=== PATIENT | male | born 1945 | race Caucasian/White ===

== ENCOUNTER 2018-02-05 11:14 | Outpatient (CLI) | payer MEDICARE, OTHER ==
[~2018-02-05] VITALS: Ht 193 cm; Wt 118.2 kg
--- NOTE | ~2018-02-05 | OP ---
PATIENT NAME: DIANA FITZGERALD JR MEDICAL RECORD: [id number] :49 LOCATION:D.CAT ADMISSION DATE: SURGEON: LEONIDES LAWSON MD DATE OF OPERATION: 02/05/2018 PROCEDURE: Left heart catheterization, selective coronary angiography, right femoral artery approach. CATHETERS: A 5-Jordanian sheath, 5/4 left and right Kear[place], 5/4 pig. The procedure was well tolerated. The patient returned to the iraheta. Sheath was removed. ExoSeal device was placed. FINDINGS: Left ventriculography in 30 degrees LAMAR view, normal wall motion, normal systolic function. CORONARY ANATOMY: LEFT MAIN: Left main is free of disease. LAD: Has a tight stenosis in mid portion around the takeoff of the septal remedy developer of 90%, diagonal D1 has an 80% proximal to almost ostial stenosis. CIRCUMFLEX: Free of disease. RIGHT CORONARY ARTERY: Dominant artery, free of disease. IMPRESSION AND PLAN: Intervention of LAD and diagonal momentarily. DESCRIPTION OF PROCEDURE: A 5-Jordanian sheath was exchanged for 6-Jordanian sheath. XB LAD guiding catheter provided excellent guide catheter support. Initial lesion in the LAD was addressed after we placed a Whisper wire through the occlusion down distal portion of vessel, 3.0 x 15 mm Resolute drug-eluting stent was inflated up to 14 atmospheres. Next, the indwelling Whisper wire was used and we were able to cross the ostial proximal diagonal lesion of 80%. Next, a 2.5 x 12 mm Ennice drug-eluting stent was placed in this artery and inflated up to 14 atmospheres again for 45 seconds. Final angiography shows excellent resolution of 90% LAD stenosis and 80% diagonal stenosis. No significant residual. ARTUR flow was 3 throughout the procedure. Heparin and Integrilin were used during the case. Sheath was closed with ExoSeal device. Plavix was loaded in the lab. TRANSINT:[id number] Voice Confirmation ID: [id number] DOCUMENT ID: [id number] LEONIDES LAWSON MD at 0816 CC: [id number] DICTATION DATE: 02/05/18 1432 [employer] E[employer]MENT: 02/05/18 1503 DEP CLI 02/05/18 [place] [address]
--- NOTE | ~2018-02-05 | HEMODYNAMI ---
PATIENT:DIANA FITZGERALD JR MEDICAL RECORD: [id number] : 49 LOCATION:DManojCAT ADMISSION DATE: 02/05/18 Generatedon:02/05/201814:26 Patient name: DIANA FITZGERALD Patient #: [id number] SSN: D OB: 1945 Date of study: 02/05/2018 Page: Of Hemodynamic Procedure Report Patient Data Patient Demographics Procedure consent was obtained First Name: DIANA Gender: Male Last Name: AMILCAR Suffix: [facility] Initial: A : 1945 Patient #: [id number] Age: 72 year(s) Race: Unknown Additional ID: [id number] Contact details [address]: [address] [place] [address] State: [place] City: [place] Zip code: [address] Admission Admission Data Admission Date: 02/05/2018 Admission Time: 11:14 Procedure Procedure Types Cath Procedure Diagnostic Procedure LHC LHC w/Coronaries PCI Procedure Coronary Stent Coronary Stent Initial Coronary Stent Additional Procedure Description Procedure Date Procedure Date: 02/05/2018 Procedure Start Time: 13:49 Procedure End Time: 14:22 Procedure Staff Name Function Kirk Tineo MD Performing Physician Ramón Conteh RT Monitor Nona Arizmendi RN Nurse Cruzito Telles RT Scrub Procedure Data Cath Procedure Fluoroscopy Diagnostic fluoroscopy Total fluoroscopy Time: 6 time: 6 min min Diagnostic fluoroscopy Total fluoroscopy dose: 922 dose: 922 mGy mGy Contrast Material Contrast Material Type Amount (ml) Isovue 300 163 Entry Location Entry Primary Successful Side Size Upsize Upsize Entry Closure Succes sful Closure Location (Fr) 1 (Fr) 2 (Fr) Remarks Device Remarks Femoral Right 5 Fr 6 Fr Exoseal artery Short Estimated blood loss: 10 ml Diagnostic catheters Device Type Used For End Catheter Placement MULTIPACK JL 4.0 5Fr Procedure catheter MULTIPACK 3DRC 5Fr Procedure catheter MULTIPACK Pigtail 5 Fr Procedure catheter Procedure Complications No complications Procedure Medications Medication Administration Route Dosage Oxygen NC 2 l/min Lidocaine 2% added to field 20 0.9% NaCl I.V. 100 ml/hr Heparin Flush Bag added to field 2 bags (1000units/500ml NS) Heparin Bolus I.V. 5000 units Versed I.V. 1 mg Fentanyl I.V. 50 mcg Versed I.V. 1 mg Fentanyl I.V. 50 mcg Versed I.V. 1 mg Fentanyl I.V. 50 mcg Versed I.V. 1 mg Plavix P.O. 600 mg Hemodynamics Rest Heart Rate: 53 (bpm) Pressure Samples Time Site Value (mmHg) Purpose Heart Use Rate(bpm) 13:52 AO 96/64(80) Snapshot 54 13:57 LV 102/9,11 Snapshot 56 Gradients Valve Time Site Site Mean SEP/DFP Peak To Heart Use 1 2 (mmHg) (sec/min) Peak Rate (mmHg) (bpm) Aortic 13:57 LV AO 57 Snapshots Pre Cath Intra NCS Post Cath Vital Signs Time Heart Resp SPO2 etCO2 NIBP (mmHg) Rhythm Pain Sedation Rate (ipm) (%) (mmHg) Status Level (bpm) 13:37:17 53 25 96 0 136/80(108) NSR 0 (11) 10(A) , No pain 13:41:45 52 20 97 26.9 141/78(116) NSR 0 (11) 10(A) , No pain 13:46:05 51 16 96 36.7 122/72(94) NSR 0 (11) 10(A) , No pain 13:50:23 51 21 95 35.9 119/67(88) NSR 0 (11) 9(A) , No pain 13:54:45 56 18 92 35.2 121/61(87) NSR 0 (11) 9(A) , No pain 13:59:04 56 17 93 36.7 114/65(94) NSR 0 (11) 9(A) , No pain 14:03:22 58 17 94 37.4 108/59(82) NSR 0 (11) 9(A) , No pain 14:07:40 58 16 94 35.9 109/63(88) NSR 0 (11) 9(A) , No pain 14:11:58 56 17 95 36 122/63(95) NSR 0 (11) 9(A) , No pain 14:16:18 53 20 96 32.2 122/68(92) NSR 0 (11) 9(A) , No pain 14:20:38 56 20 96 27.7 127/76(100) NSR 0 (11) 10(A) , No pain Medications Time Medication Route Dose Verified Delivered Reason Notes E ffectiveness by by 13:40:04 Lidocaine 2% added 20ml Nona Nona for local to vial Ugo Ugo anesthetic field RN RN 13:40:24 0.9% NaCl I.V. 100 Nona Nona used for ml/hr Ugo Ugo golf player assistant RN 13:40:35 Heparin Flush added 2 Nona Nona used for Bag to bags Ugo Ugo procedure (1000units/500ml field RN RN NS) 13:40:52 Oxygen NC 2 Nona Nona used for l/min Ugo Ugo golf player assistant RN 13:44:09 Fentanyl I.V. 50 Nona Nona for mcg Ugo Ugo sedation RN RN 13:44:51 Versed I.V. 1 mg Nona Nona for Ugo Ugo sedation RN RN 13:48:25 Versed I.V. 1 mg Nona Nona for Ugo Ugo sedation RN RN 13:48:38 Fentanyl I.V. 50 Nona Nona for mcg Ugo Ugo sedation RN RN 13:52:05 Fentanyl I.V. 50 Nona Nona for mcg Ugo Ugo sedation RN RN 13:53:50 Versed I.V. 1 mg Nona Nona for Ugo Ugo sedation RN RN 13:58:59 Heparin Bolus I.V. 5000 Nona Nona Per verified units Ugo Ugo physician with RN RN [place] 14:00:18 Versed I.V. 1 mg Nona Nona for Ugo Ugo sedation RN RN 14:20:44 Plavix P.O. 600 Nona Nona Per mg Ugo Ugo physician RN media center specialist Log Time Note 13:10:54 Ramón Conteh RT(R) sent for patient. Start room use. 13:31:02 Time tracking: Regular hours (M-F 7:00 - 5:00) 13:31:05 Plan of Care:Hemodynamics will remain stable., Cardiac rhythm will remain stable., Comfort level will be maintained., Respiratory function will remain adequate., Patient/ family verbilizes understanding of procedure., Procedure tolerated without complication., Recovers from procedure without complications.. 13:31:11 Patient received from Pre/Post Procedure Room to CCL 3 Alert and oriented. Tansferred to table in Supine position. 13:31:12 Warm blankets applied, and shai hugger turned on for patient comfort. 13:31:12 Correct patient and procedure confirmed by team. 13:31:13 Signed procedure consent form obtained from patient. 13:31:13 ECG and BP/O2 sat monitors applied to patient. 13:36:02 Vital chart was started 13:39:15 Baseline sample Acquired. 13:39:19 Rhythm: sinus bradycardia 13:39:20 Full Disclosure recording started 13:39:36 H&P Date Dictated: 01/25/2018 Within 30 days and on chart., H&P Addendum completed by physician on day of procedure. (MUST COMPLETE FOR ALL OUTPATIENTS). 13:39:37 Pre-procedure instructions explained to patient. 13:39:37 Pre-op teaching completed and patient verbalized understanding. 13:39:39 Family in patients room. 13:39:41 Patient NPO since Midnight. 13:39:42 Is the patient allergic to Iodine/contrast media? No. 13:39:46 Is patient on blood thinner?No 13:39:57 Patient diabetic? No. 13:40:01 Previous problem with sedation/anesthesia? No ? 13:40:02 Snore? Yes 13:40:03 Sleep apnea? Yes 13:40:04 Lidocaine 2% 20ml vial added to field was administered by Nona Arizmendi RN; for local anesthetic; 13:40:04 Deviated septum? No 13:40:05 Opens mouth fully? Yes 13:40:05 Sticks out tongue? Yes 13:40:07 Airway obstruction? No ? 13:40:24 0.9% NaCl 100 ml/hr I.V. was administered by Nona Arizmendi RN; used for procedure; 13:40:35 Heparin Flush Bag (1000units/500ml NS) 2 bags added to field was administered by Nona Arizmendi RN; used for procedure; 13:40:52 Oxygen 2 l/min NC was administered by Nona Ugo RN; used for procedure; 13:41:17 Dentures? No ? 13:41:19 Pre procedure: right dorsailis pedis pulse 1+ Palpable, but thready & weak; easily obliterated 13:41:21 FAILED THONY'S 13:41:21 Modified Thony's test Ulnar < 7 seconds 13:41:25 Patient pain scale 0/10 ?. 13:43:53 IV patent on arrival in left forearm with 0.9% NaCl at O. 13:43:57 Lab results completed and on chart. 13:44:09 Fentanyl 50 mcg I.V. was administered by Nona Arizmendi RN; for sedation; 13:44:11 Right groin area was prepped with chlora-prep and draped in sterile fashion 13:44:12 Alarms reviewed by R. N. 13:44:12 Sharps counted by scrub and verified by R.N. 13:44:36 --------ALL STOP TIME OUT------ 13:44:36 Final Timeout: patient, procedure, and site verified with staff and physician. All members of the team are in agreement. 13:44:38 Right groin site verified by team. 13:44:41 Physical assessment completed. ASA score P 2 - A patient with mild systemic disease as per Kirk Tineo MD. 13:44:44 Sedation plan: IV Moderate Sedation Medication:Versed, Fentanyl 13:44:51 Versed 1 mg I.V. was administered by Nona Arizmendi RN; for sedation; 13:47:06 Zero performed for pressure channel P1 13:48:25 Versed 1 mg I.V. was administered by Nona Arizmendi RN; for sedation; 13:48:38 Fentanyl 50 mcg I.V. was administered by Nona Arizmendi RN; for sedation; 13:49:04 Use device set Femoral Dx 13:49:05 Tegaderm 4 x 4 (1626W) opened to sterile field. 13:49:06 PERCUTANEOUS ENTRY 19GA needle opened to sterile field. 13:49:08 ACIST Hand Control (24892) opened to sterile field. 13:49:08 ACIST Manifold (23104) opened to sterile field. 13:49:10 ACIST Syringe (20732) opened to sterile field. 13:49:10 Bag Decanter (2002S) opened to sterile field. 13:49:10 Medline Cath Pack ([id number]) opened to sterile field. 13:49:11 DIAGNOSTIC WIRE .035 260cm J wire (779561) opened to sterile field. 13:49:12 DIAGNOSTIC Multipack 5Fr catheter set (FD8145) opened to sterile field. 13:49:15 SHEATH Prelude 5Fr 0.035 (ZQD-7G-11-035) opened to sterile field. 13:49:19 Procedure started. 13:49:23 Local anesthetic to right femoral artery with Lidocaine 2% by Kirk Tineo MD.INITIAL ACCESS ONLY 13:50:22 A 5 Fr sheath was inserted into the Right Femoral artery 13:50:44 A MULTIPACK JL 4.0 5Fr catheter was advanced over the wire and used for Procedure. 13:51:52 LCA angiography performed. 13:52:05 Fentanyl 50 mcg I.V. was administered by Nona Arizmendi RN; for sedation; 13:53:05 Catheter removed. 13:53:50 Versed 1 mg I.V. was administered by Nona Arizmendi RN; for sedation; 13:54:00 A MULTIPACK 3DRC 5Fr catheter was advanced over the wire and used for Procedure. 13:55:03 RCA angiography performed. 13:55:49 Catheter removed. 13:55:58 A MULTIPACK Pigtail 5 Fr catheter was advanced over the wire and used for Procedure. 13:56:13 Use device set KEYSTONE PCI 13:56:22 INFLATOR Merit BasixCompak (EC3550) opened to sterile field. 13:56:23 WHISPER 300cm guide wire ([id number]) opened to sterile field. 13:56:25 SHEATH Prelude 6Fr 0.035 (OWI-9O-47-035) opened to sterile field. 13:57:34 LV angiography performed. 13:57:36 LV gram done using LAMAR 13:57:40 EF : 55 % 13:57:42 LV hemodynamics recorded. 13:57:45 Injector settings: Ml/sec: 10, Volume: 20, 13:57:47 Catheter removed. 13:57:54 GUIDE 6FR XBLAD 4.0 catheter ([id number]) opened to sterile field. 13:58:02 Sheath upsized to a 6 Fr Short. 13:58:59 Heparin Bolus 5000 units I.V. was administered by Nona Arizmendi RN; Per physician; verified with dr. tineo 13:59:37 6 Fr XBLAD 4 guide catheter was inserted over the wire 14:00:18 Versed 1 mg I.V. was administered by Nona Arizmendi RN; for sedation; 14:01:08 Whisper wire advanced. 14:03:02 Wire advanced across lesion. 14:09:26 Place stent Inflation Number: 1 A KAMAR RX 3.0 x 15 stent ([id number]) was prepped and advanced across the Mid LAD. The stent was deployed at 14 ILANA for 0:30 (min:sec). 14:10:50 Wire redirected to DIAG. 14:11:30 Inflation number: 1 The stent balloon was then re-inflated across the 1st Diag to 12 ILANA for 0:30 (min:sec). 14:12:25 Stent catheter was removed intact over wire. 14:15:20 Place stent Inflation Number: 2 A KAMAR RX 2.5 x 12 stent ([id number]) was prepped and advanced across the 1st Diag. The stent was deployed at 14 ILANA for 0:30 (min:sec). 14:16:18 Stent catheter was removed intact over wire. 14:16:19 Wire removed. 14:16:20 Guide catheter removed. 14:17:21 EXOSEAL 6Fr (EX600) opened to sterile field. 14:17:45 Sheath removed intact; hemostasis achieved with Exoseal to the Right Femoral artery. 14:17:46 Procedure ended.(Physican Out) 14:19:28 Fluoroscopy time 06.00 minutes. 14:19:32 Fluoroscopy dose: 922 mGy 14:19:32 Flurop Dose total: 922 14:19:36 Contrast amount:Isovue 300 163ml. 14:19:42 Sharps counted by scrub and verified by R.N. 14:19:44 Insertion/operative site no bleeding no hematoma. 14:19:46 Post-op/insertion site Right Femoral artery dressed using a 4 x 4 and Tegaderm. 14:19:47 Post Procedure Pulses reassessed and unchanged 14:19:49 Post-procedure physical assessment completed. ASA score P 2 - A patient with mild systemic disease as per Kirk Tineo MD. 14:19:55 Post procedure rhythm: unchanged. 14:20:00 Estimated blood loss: 10 ml 14:20:03 Post procedure instruction explained to patient.Patient verbalizes understanding. 14:20:04 Patient needs reinforcement of post procedure teaching. 14:20:14 Procedure type changed to Cath procedure, Diagnostic procedure, LHC, LHC w/Coronaries, PCI procedure, Coronary Stent, Coronary Stent Initial, Coronary Stent Additional 14:20:15 Procedure and supply charges have been captured, reviewed, submitted and are correct. 14:20:44 Plavix 600 mg P.O. was administered by Nona Arizmendi RN; Per physician; 14:22:20 Procedure Complication : No complications 14:22:23 Vital chart was stopped 14:22:24 See physician's report for complete and final results. 14:22:25 Report given to Pre/Post Procedure Room. 14:22:27 Patient transfered to Pre/Post Procedure Room with Stretcher. 14:22:29 Procedure ended. 14:22:29 Full Disclosure recording stopped 14:24:08 End room use (Document Last) Intervention Summary Intervention Notes Time ActionType Lesion and Equipment Used Action# Pressure Duration Attributes 14:09:26 Place stent Mid LAD KAMAR RX 3.0 x 1 14 00:30 15 stent ([id number]) 14:11:30 Reinflate 1st Diag KAMAR RX 3.0 x 1 12 00:30 stent 15 stent balloon ([id number]) 14:15:20 Place stent 1st Diag KAMAR RX 2.5 x 2 14 00:30 12 stent ([id number]) Device Usage Item Name Manufacture Quantity Catalog Number Hospital Part Current Minimal Lot# / Charge Number Stock Stock Serial# Code Tegaderm 4 x 4 3M 1 1626W [id number] [id number] [id number] 5 (1626W) PERCUTANEOUS Cook Medical 1 [id number] 833911 348316 5 ENTRY 19GA needle ACIST Hand Acist 1 00615 257652 486926 678002 5 Control (43013) [employer] Inc ACIST Manifold Acist 1 54561 086099 661717 776885 5 (63548) [employer] Inc ACIST Syringe Acist 1 36793 961372 547877 736203 20 (36689) Medical Systems Inc Bag Decanter Microtek 1 777743 58349 259507 5 () Medical Inc. Medline Cath Cardinal 1 [id number] 078919 01538 494828 5 Pack Health ([id number]) DIAGNOSTIC WIRE St Trell 1 924694 309000 123605 514798 30 .035 260cm J wire (358942) DIAGNOSTIC Cardinal 1 SX2709 929887 08216 584859 30 Multipack 5Fr Health catheter set (BL4683) SHEATH Prelude Merit 1 PSG-7O-49-035 428811 904622 217567 5 5Fr 0.035 Medical ([facility]-6Z-29-035) MULTIPACK JL Cardinal 1 959153 5 4.0 5Fr Health catheter MULTIPACK 3DRC Cardinal 1 908085 5 5Fr catheter Health MULTIPACK Cardinal 1 402571 5 Pigtail 5 Fr Health catheter INFLATOR Merit Merit 1 WN8551 200154 455323 593851 15 [employer] Medical (GU2513) WHISPER 300cm Alvarado 1 [id number] 275943 815235 535081 5 guide wire Vascular ([id number]) SHEATH Prelude Merit 1 MTY-6X-91-35 100953 4942953 933929 5 6Fr 0.035 Medical (FNZ-8C-00-035) GUIDE 6FR XBLAD Cardinal 1 [id number] 291133 893956 954775 3 4.0 catheter ALICE App ([id number]) KAMAR RX 3.0 x Medtronic 1 [id number] 097065 1685267 441792 5 [id number] 15 stent ([id number]) KAMAR RX 2.5 x Medtronic 1 [id number] 935591 5606736 884108 5 [id number] 12 stent ([id number]) EXOSEAL 6Fr Cardinal 1 EX600 733934 260487 057649 10 (EX600) Health Signature Audit [place] Stage Time Signature Unsigned Intra-Procedure 02/05/2018 Ramón Conteh 2:26:21 PM RT(R) Signatures Monitor : Rmaón Conteh RT Signature : Date : Time : [facility] [address] [place] [address]
[2018-02-05] MEDS ORDERED: PROZAC40 MG PO (11:58)
[2018-02-05] MEDS ORDERED: ELIQUIS5 MG PO (11:59)
[2018-02-05] MEDS ORDERED: ZYRTEC10 MG PO (11:59)
[2018-02-05] MEDS ORDERED: BUSPAR10 MG PO (11:59)
[2018-02-05] MEDS ORDERED: FLOMAX0.4 MG PO (12:00)
[2018-02-05 12:01] VITALS: BP 124/70; Ht 193 cm; Wt 118.2 kg
[2018-02-05 12:06] LABS: BASOPHILS 0.6 % (0-2); EOSINOPHILS 4.2 % (0-7); HEMATOCRIT 40.1 % (42.0-54.0); HEMOGLOBIN 13.3 g/dL (13.5-17.5); IMMATURE GRANULOCYTES 0.6 % (0-5); LYMPHOCYTES 27.3 % (15-50); MCH 29.3 pg (26.0-34.0); MCHC 33.2 g/dL (31.0-37.0); MCV 88.3 fL (80.0-100.0); MEAN PLATELET VOLUME 9.7 fL (7.4-10.4); MONOCYTES 4.4 % (2-11); NEUTROPHILS 62.9 % (40-80); RBC 4.54 10x6/uL (4.20-6.10); RDW 13.4 % (11.5-14.5); WBC 5.1 10x3/uL (4.8-10.8)
[2018-02-05 12:15] LABS: PLATELET COUNT 195 10x3/uL (130-400)
[2018-02-05 12:27] LABS: CALC OSMOLALITY 280 mosm/kg (275-300); CARBON DIOXIDE 27.2 mmol/L (21.0-32.0); CHLORIDE - SERUM 106 mmol/L (98-107); CREATININE - SERUM 0.9 mg/dL (0.6-1.3); GLUCOSE 96 mg/dL (74-106); POTASSIUM - SERUM 4.3 mmol/L (3.5-5.1); SODIUM 140 mmol/L (136-145); UREA NITROGEN 19 mg/dL (7-18); eGFR NON AFRICAN AMERICAN 89 mL/min (90-120)
== END 2018-02-05 18:50 | disposition home or self-care (01) ==
LOC: D.CATH 11:14
PROVIDERS: Internal Medicine Interventional Cardiology
DX: I25.119 Atherosclerotic heart disease of native coronary artery with unspecified angina pectoris (principal); Z01.812 Encounter for preprocedural laboratory examination
CPT/HCPCS: 93458; C9600; C9601

== ENCOUNTER → 2018-12-31 13:43 | Outpatient (CLI) | payer MEDICARE, OTHER ==
[2018-02-05 12:01] VITALS: BMI 31.7
[~2018-12-31 13:43] MED LIST: BUSPAR10 MG PO; ELIQUIS5 MG PO; FLOMAX0.4 MG PO; PROZAC40 MG PO; ZYRTEC10 MG PO
[2019-01-02 10:15] LABS: IMMUNOGLOBULIN A 82 mg/dL (61-437); IMMUNOGLOBULIN G 840 mg/dL (700-1600)
[2019-01-02 20:06] LABS: ANA REFLEX - DIRECT Negative (Negative)
== END | disposition home or self-care (01) ==
LOC: D.RT 13:43
PROVIDERS: ATTEND Internal Medicine Pulmonary Disease
DX: J84.9 Interstitial pulmonary disease, unspecified (principal); R06.00 Dyspnea, unspecified

== ENCOUNTER → 2019-07-15 10:59 | Outpatient (CLI) | payer MEDICARE, OTHER ==
[2018-02-05 12:01] VITALS: BMI 31.7
== END | disposition home or self-care (01) ==
LOC: D.RT 07-08 10:00 → D.CT 07-08 10:00
PROVIDERS: ATTEND Internal Medicine Pulmonary Disease
DX: R06.00 Dyspnea, unspecified (principal); J84.9 Interstitial pulmonary disease, unspecified

== ENCOUNTER → 2019-08-25 09:02 | Outpatient (CLI) | payer MEDICARE, OTHER ==
[2018-02-05 12:01] VITALS: BMI 31.7
== END | disposition home or self-care (01) ==
LOC: D.RT 09:02
PROVIDERS: ATTEND Internal Medicine Pulmonary Disease
DX: R06.00 Dyspnea, unspecified (principal)

== ENCOUNTER → 2020-01-07 09:07 | Outpatient (CLI) | payer MEDICARE, OTHER ==
[2018-02-05 12:01] VITALS: BMI 31.7
[2020-01-07 16:28] LABS: HEMOGLOBIN 13.7 g/dL (13.5-17.5); MCH 28.6 pg (26.0-34.0); MCHC 31.9 g/dL (31.0-37.0); MCV 89.8 fL (80.0-100.0); MEAN PLATELET VOLUME 10.4 fL (7.4-10.4); PLATELET COUNT 178 10x3/uL (130-400); RBC 4.79 10x6/uL (4.20-6.10); RDW 13.6 % (11.5-14.5); WBC 6.3 10x3/uL (4.8-10.8)
[2020-01-07 17:22] LABS: EOSINOPHILS 2 % (0-7); LYMPHOCYTES 18 % (15-50); MONOCYTES 2 % (2-11); NEUTROPHILS 79 % (40-80); PLATELET ESTIMATE NORMAL
== END | disposition home or self-care (01) ==
LOC: D.LABREF 09:07
PROVIDERS: ATTEND Legal Medicine
DX: C18.6 Malignant neoplasm of descending colon (principal)

== ENCOUNTER → 2020-01-08 21:19 | Outpatient (CLI) | payer MEDICARE, OTHER ==
[2018-02-05 12:01] VITALS: BMI 31.7
== END | disposition home or self-care (01) ==
LOC: D.LABREF 21:19
PROVIDERS: ATTEND Legal Medicine
DX: C18.6 Malignant neoplasm of descending colon (principal)

== ENCOUNTER → 2020-02-04 11:34 | Outpatient (CLI) | payer MEDICARE, OTHER ==
[2018-02-05 12:01] VITALS: BMI 31.7
== END | disposition home or self-care (01) ==
LOC: D.LAB 11:34
PROVIDERS: ATTEND Internal Medicine Pulmonary Disease
DX: Z11.59 Encounter for screening for other viral diseases (principal)

== ENCOUNTER → 2020-02-05 09:15 | Outpatient (CLI) | payer MEDICARE, OTHER ==
[2018-02-05 12:01] VITALS: BMI 31.7
== END | disposition home or self-care (01) ==
LOC: D.RT 09:15
PROVIDERS: ATTEND Internal Medicine Pulmonary Disease
DX: R06.00 Dyspnea, unspecified (principal); J84.10 Pulmonary fibrosis, unspecified

== ENCOUNTER → 2020-11-01 11:08 | Outpatient (CLI) | payer MEDICARE, OTHER ==
[~2020-11-01 11:08] MED LIST changes: +ADVAIR 250-501 EAC1 INH; +BUPROPION HCL150 M1 PO; +OMNICEF300 MG PO; +OPTIVE SENSITI1 EACH OP; +PREDNISONE10 MG PO; +SINGULAIR10 MG PO; +TAMIFLU75 MG PO; +ZITHROMAX500 MG PO; +ZOLOFT100 MG
== END | disposition home or self-care (01) ==
LOC: D.HCCECHO 10-20 08:30 → D.RAD 11:08
PROVIDERS: ATTEND Internal Medicine Interventional Cardiology
DX: J18.9 Pneumonia, unspecified organism (principal)

== ENCOUNTER → 2021-01-04 15:24 | Outpatient (CLI) | payer MEDICARE, OTHER | END | disposition home or self-care (01) | LOC: D.LAB 15:24 | PROVIDERS: ATTEND Internal Medicine Gastroenterology | DX: J84.9 Interstitial pulmonary disease, unspecified (principal) ==

== ENCOUNTER → 2021-01-07 13:54 | Outpatient (CLI) | payer MEDICARE, OTHER | END | disposition home or self-care (01) | LOC: D.RT 13:54 | PROVIDERS: ATTEND Internal Medicine Pulmonary Disease | DX: J84.9 Interstitial pulmonary disease, unspecified (principal); Z85.038 Personal history of other malignant neoplasm of large intestine ==